=== PATIENT | female | born 1985 | race Caucasian/White ===

== ENCOUNTER 2017-07-05 10:32 | Outpatient (CLI) | payer OTHER | END 2017-07-05 10:39 | disposition home or self-care (01) | LOC: SONOGRAMA 10:32 → EDBD 10:32 → SONOGRAMA 10:39 | DX: N64.3 Galactorrhea not associated with childbirth (principal); N94.4 Primary dysmenorrhea ==

== ENCOUNTER 2017-07-07 12:09 | Outpatient (CLI) | payer OTHER | END 2017-07-07 15:51 | disposition home or self-care (01) | LOC: SONOGRAMA 12:09 → MRI 12:09 → SONOGRAMA 15:51 | DX: E04.8 Other specified nontoxic goiter (principal); E89.0 Postprocedural hypothyroidism ==

== ENCOUNTER 2017-07-21 13:04 | Outpatient (CLI) | payer OTHER | END 2017-07-21 15:03 | disposition home or self-care (01) | LOC: MRI 13:04 | DX: E22.1 Hyperprolactinemia (principal) | CPT/HCPCS: 70552 ==